=== PATIENT | female | born 1960 | race Caucasian/White ===

== ENCOUNTER → 2023-02-01 | Outpatient (CLI) | payer OTHER ==
[~2023-02-01] MED LIST: ATENOLOL; CEPHALEXIN125 MG/5 M PO; DHE IM; INDOMETHACIN; NORCO 325 MG-51 TAB PO; TENORMIN 2525 MG/TAB PO
== END ==
LOC: COL.RAD 11:04
DX: I10 Essential (primary) hypertension (principal); R07.9 Chest pain, unspecified